=== PATIENT | male | born 1945 | race Caucasian/White ===

== ENCOUNTER 2019-10-10 11:29 | Outpatient (CLI) | payer OTHER | END 2019-10-10 11:38 | disposition home or self-care (01) | LOC: SONOGRAMA 11:29 → MAMO-SONO 10-17 10:30 | DX: M25.512 Pain in left shoulder (principal) ==

== ENCOUNTER 2019-10-17 10:41 | Outpatient (CLI) | payer OTHER | END 2019-10-17 10:44 | disposition home or self-care (01) | LOC: SONOGRAMA 10:41 | DX: R16.0 Hepatomegaly, not elsewhere classified (principal) ==

== ENCOUNTER 2021-01-14 12:27 | Outpatient (CLI) | payer OTHER | END 2021-01-14 12:38 | disposition home or self-care (01) | LOC: SONOGRAMA 12:27 → MAMO-SONO 12:45 | PROVIDERS: ATTEND Internal Medicine Rheumatology | DX: M75.82 Other shoulder lesions, left shoulder (principal) ==

== ENCOUNTER 2022-04-15 10:52 | Outpatient (CLI) | payer OTHER | END 2022-04-15 10:58 | disposition home or self-care (01) | LOC: SONOGRAMA 10:52 | DX: R10.9 Unspecified abdominal pain (principal) ==

== ENCOUNTER 2022-11-11 14:15 | Outpatient (CLI) | payer OTHER | END 2022-11-11 14:19 | disposition home or self-care (01) | LOC: RAD 14:15 | PROVIDERS: ATTEND Internal Medicine Rheumatology | DX: M15.0 Primary generalized (osteo)arthritis (principal) ==

== ENCOUNTER 2023-04-27 09:19 | Outpatient (CLI) | payer OTHER | END 2023-04-27 09:24 | disposition home or self-care (01) | LOC: SONOGRAMA 09:19 | PROVIDERS: ATTEND Internal Medicine Gastroenterology | DX: R10.84 Generalized abdominal pain (principal) ==

== ENCOUNTER 2024-05-10 13:24 | Outpatient (CLI) | payer OTHER | END 2024-05-10 13:37 | disposition home or self-care (01) | LOC: TOM 13:24 | DX: G91.2 (Idiopathic) normal pressure hydrocephalus (principal) ==

== ENCOUNTER 2024-09-11 14:36 | Outpatient (CLI) | payer OTHER | END 2024-09-11 14:42 | disposition home or self-care (01) | LOC: RAD 14:36 | PROVIDERS: ATTEND Internal Medicine Rheumatology | DX: M15.0 Primary generalized (osteo)arthritis (principal) ==

== ENCOUNTER 2025-02-27 09:18 | Outpatient (CLI) | payer OTHER | END 2025-02-27 09:30 | disposition home or self-care (01) | LOC: TOM 09:18 | PROVIDERS: ATTEND Internal Medicine Hepatology | DX: K62.5 Hemorrhage of anus and rectum (principal) ==